=== PATIENT | female | born 1995 ===

== ENCOUNTER 2023-11-13 15:30 | Emergency (ER) | payer OTHER ==
[~2023-11-13] VITALS: Ht 154.9 cm; Wt 84.7 kg
[2023-11-13] MEDS ORDERED: Ketorolac Tromethamine 30mg Vial IV ONE (17:00)
== END 2023-11-13 17:31 | disposition home or self-care (01) ==
LOC: ER 15:30
DX: G43.909 Migraine, unspecified, not intractable, without status migrainosus (principal)
CPT/HCPCS: 82947; 96374; 99283-25; J1885